=== PATIENT | male | born 1965 | race Caucasian/White ===

== ENCOUNTER → 2018-07-04 | Outpatient (CLI) | payer BC ==
--- NOTE | 2018-07-04 15:06 | Diagnostic Imaging Report ---
EXAMINATION: Scrotal ultrasound CLINICAL INDICATION: Epididymitis. COMPARISON: None. TECHNIQUE: Grayscale and color Doppler evaluation of the scrotum was performed in transverse and longitudinal planes. Supplemental spectral waveform analysis was also performed. FINDINGS: The right testicle measures 4.5 x 2.4 x 3 cm. There are no masses or calcifications.. The right epididymis measures 1.1 x 1.1 x 1.1 cm. 0.5 cm round, anechoic structure in the left epididymal head. There is no evidence of right hydrocele or varicocele. There are normal arterial and venous waveforms on spectral waveform analysis of the right testicle, without evidence of torsion. The left testicle measures 4.4 x 2.4 x 3.3 cm. There are no masses or calcifications.. The left epididymis measures 1 x 1.1 x 1.1 cm. No nodules or masses.. Small left varicocele is noted. There are normal arterial and venous waveforms in the left testis without evidence of torsion. The scrotum has a normal appearance, without focal lesions. Impression: Unremarkable sonographic appearance of the testes. Normal arterial and venous waveforms bilaterally. Small right epididymal head cyst versus spermatocele. Small left varicocele. Signed by: Dr. Getachew Farley M.D. on 07/04/2018 3:03 PM
== END ==
LOC: US 14:05
PROVIDERS: ATTEND Family Medicine
DX: N45.1 Epididymitis (principal)
CPT/HCPCS: 76870; 93976

== ENCOUNTER 2019-03-24 15:00 | Outpatient (RCR) | payer BC | END 2019-03-26 | LOC: PT 15:00 | PROVIDERS: ATTEND Neurological Surgery | DX: M51.16 Intervertebral disc disorders with radiculopathy, lumbar region (principal) ==

== ENCOUNTER 2019-04-13 13:00 | Outpatient (RCR) | payer BC | END 2019-04-26 | LOC: PT 13:00 | PROVIDERS: ATTEND Neurological Surgery | DX: M51.16 Intervertebral disc disorders with radiculopathy, lumbar region (principal); M54.5 Low back pain; M62.81 Muscle weakness (generalized); M53.86 Other specified dorsopathies, lumbar region ==

== ENCOUNTER → 2019-07-04 | Outpatient (CLI) | payer BC | LOC: RAD 08:45 | PROVIDERS: ATTEND Family Medicine | DX: R60.9 Edema, unspecified (principal) | CPT/HCPCS: 93971 ==

== ENCOUNTER 2024-04-07 21:39 | Emergency (ER) | payer BC ==
[~2024-04-07] VITALS: Ht 182.9 cm; Wt 99.8 kg
[2024-04-07 22:15] VITALS: TEMP 98.6
[2024-04-07 23:55] LABS: BASOPHILS # (AUTO) 0.1 (0.0-0.1); BASOPHILS % 1.2 % (0.0-1.0); EOSINOPHILS # (AUTO) 0.2 (0.0-0.4); EOSINOPHILS % 1.8 % (0.0-6.0); HEMATOCRIT 48.7 % (38.2-49.6); HEMOGLOBIN 16.8 g/dL (14.0-18.0); LYMPHOCYTES # (AUTO) 2.1 (1.0-3.2); LYMPHOCYTES % 26.1 % (18.0-39.1); MEAN CORPUSCULAR HEMOGLOBIN 29.8 pg (28-32); MEAN CORPUSCULAR HGB CONC 34.5 g/dL (31-35); MEAN CORPUSCULAR VOLUME 86.3 fL (81-99); MONOCYTES # (AUTO) 0.6 (0.2-0.8); MONOCYTES % 7.2 % (4.4-11.3); NEUTROPHILS # (AUTO) 5.1 (2.1-6.9); NEUTROPHILS % 63.5 % (38.7-80.0); PLATELET COUNT 132 x10e3/uL (140-360); RED BLOOD COUNT 5.64 x10e6/uL (4.3-5.7); RED CELL DISTRIBUTION WIDTH 12.7 % (11.7-14.4); WHITE BLOOD COUNT 8.11 x10e3/uL (4.8-10.8)
[2024-04-08 00:09] LABS: ANION GAP 16.4 mmol/L (8-16); CALCIUM 9.8 mg/dL (8.4-10.2); CREATININE, SERUM 0.93 mg/dL (0.72-1.25); POTASSIUM 4.4 mmol/L (3.5-5.1)
[2024-04-08] MEDS: ONDANSETRON HCL INJ 2MG/ML 2ML 2 MG/ML VIAL IV STA ×2 (00:52→03:10)
[2024-04-08] MEDS: Morphine 4mg INJECTION 4 MG/ML INJ IV ONE ×2 (00:52→03:10)
[2024-04-08 02:30] VITALS: PULSE 74; RESP 17
[2024-04-08 03:19] VITALS: BP 141/84; PULSE 76; RESP 18; TEMP 98.3; O2SAT 98
== END 2024-04-08 03:17 | disposition other institution (70) ==
LOC: ER 21:45
DX: M54.50 Low back pain, unspecified (principal); R15.9 Full incontinence of feces; I10 Essential (primary) hypertension; E78.5 Hyperlipidemia, unspecified; G89.29 Other chronic pain
CPT/HCPCS: 36415; 80048; 85025; 99284; J2270; J2405